=== PATIENT | female | born 1960 | race Caucasian/White ===

== ENCOUNTER → 2017-01-29 08:33 | Outpatient (CLI) | payer MEDICARE, BC ==
[2014-12-24 17:55] VITALS: BMI 33.9
[~2017-01-29 08:33] MED LIST: BAYER CHEWABLE81 MG PO; CALCIUM 250+D T1 TAB PO; GLUCOPHAGE500 MG PO; LISINOPRIL10 MG PO; NOVOLIN 70/30 110 ML SC; PROBIOTIC1 EAC1 PO; TOPROL XL50 MG PO
== END | disposition home or self-care (01) ==
LOC: D.MAMMO 08:33
DX: Z12.31 Encounter for screening mammogram for malignant neoplasm of breast (principal)

== ENCOUNTER 2017-06-12 23:02 | Emergency (ER) | payer MEDICARE, BC ==
[2014-12-24 17:55] VITALS: BMI 33.9
== END 2017-06-13 01:10 | disposition home or self-care (01) ==
LOC: D.ER 23:02
DX: G89.18 Other acute postprocedural pain (principal); I80.03 Phlebitis and thrombophlebitis of superficial vessels of lower extremities, bilateral; E11.9 Type 2 diabetes mellitus without complications; Z79.4 Long term (current) use of insulin

== ENCOUNTER → 2017-08-19 15:01 | Outpatient (CLI) | payer MEDICARE, BC ==
[2014-12-24 17:55] VITALS: BMI 33.9
[~2017-08-19 15:01] MED LIST changes: +ASPIRIN EC81 M1 PO; +OMEPRAZOLE20 M1 PO; +SUPER B COMPLE150 MG PO; +TOPROL XL25 MG PO; -TOPROL XL50 MG PO
== END | disposition home or self-care (01) ==
LOC: D.LABREF 15:01
DX: N89.8 Other specified noninflammatory disorders of vagina (principal)

== ENCOUNTER 2017-09-25 06:46 | Day surgery (SDC) | payer MEDICARE, BC ==
[2017-09-24 12:10] LABS: BASOPHILS 0.5 % (0-2); EOSINOPHILS 2.4 % (0-7); HEMATOCRIT 37.5 % (36.0-48.0); HEMOGLOBIN 12.7 g/dL (12-16); LYMPHOCYTES 35.6 % (15-50); MCH 28.2 pg (26.0-34.0); MCHC 33.9 g/dL (31.0-37.0); MCV 83.3 fL (80.0-100.0); MEAN PLATELET VOLUME 9.7 fL (7.4-10.4); MONOCYTES 7.4 % (2-11); NEUTROPHILS 54.1 % (40-80); PLATELET COUNT 212 10x3/uL (130-400); RDW 12.7 % (11.5-14.5); WBC 6.4 10x3/uL (4.8-10.8)
[2017-09-24 12:35] LABS: ANION GAP 14.2 mmol/L (8-16); CALCIUM 9.4 mg/dL (8.5-10.1); CARBON DIOXIDE 23.2 mmol/L (21.0-32.0); CREATININE - SERUM 0.9 mg/dL (0.6-1.3); POTASSIUM - SERUM 4.4 mmol/L (3.5-5.1)
[~2017-09-25] VITALS: Ht 167.6 cm; Wt 76.2 kg
--- NOTE | ~2017-09-25 | OP ---
PATIENT NAME: ALEXYS KIRBY MEDICAL RECORD: [id number] :56 LOCATION:D.OPS ADMISSION DATE: SURGEON: SONIA ALEJANDRO MD DATE OF OPERATION: 09/25/2017 PREOPERATIVE DIAGNOSIS: Left vaginal wall cyst. POSTOPERATIVE DIAGNOSIS: Left vaginal wall cyst. PROCEDURE: Excision of vaginal wall cyst. SURGEON: Sonia Alejandro MD ESTIMATED BLOOD LOSS: Minimal. ANESTHESIA: General. INTRAVENOUS FLUIDS: Per anesthesia record. SPECIMENS: Left vaginal wall cyst. PROCEDURE IN DETAIL: The patient was taken to the operating room where general anesthesia was achieved without difficulty. The patient was then prepped and draped in normal sterile fashion in dorsal lithotomy position in the [facility]. The bladder was drained of approximately 30 cc of clear yellow urine and a speculum was placed into the vagina. The left vaginal wall cyst was identified and grasped with an insulated forceps and then excised at its base using the Bovie cautery. Good hemostasis was noted from the surgical site and the cyst was sent to pathology. The speculum was then removed. The patient tolerated the procedure well, was transferred to postanesthesia recovery stable without incident. TRANSINT:[id number] Voice Confirmation ID: [id number] DOCUMENT ID: [id number] SONIA LAEJANDRO MD at 1007 CC: [id number] DICTATION DATE: 10/12/17 0801 ATTRACTIONS ASSOCIATE: 10/12/17 1345 [facility] 09/25/17 [place] [id number]
[2017-09-25 07:05] VITALS: BP 99/57; BMI 27.1
[2017-09-25 07:15] VITALS: Ht 167.6 cm; Wt 76.2 kg
== END 2017-09-25 11:20 | disposition home or self-care (01) ==
LOC: D.OPS 06:46 → D.PAN 08:30 → D.OPS 09:00 → D.PAN 09:30 → D.OPS 11:20
PROVIDERS: Obstetrics & Gynecology
DX: N89.8 Other specified noninflammatory disorders of vagina (principal); E11.9 Type 2 diabetes mellitus without complications; K21.9 Gastro-esophageal reflux disease without esophagitis; Z01.812 Encounter for preprocedural laboratory examination

== ENCOUNTER 2017-11-02 21:16 | Emergency (ER) | payer MEDICARE, BC ==
[~2017-11-02] VITALS: Ht 167.6 cm; Wt 75.9 kg
[2017-11-02 21:20] VITALS: Ht 167.6 cm; Wt 75.9 kg
[2017-11-02 21:42] LABS: BASOPHILS 0.6 % (0-2); EOSINOPHILS 2.5 % (0-7); HEMATOCRIT 37.8 % (36.0-48.0); HEMOGLOBIN 13.2 g/dL (12-16); IMMATURE GRANULOCYTES 0.2 % (0-5); LYMPHOCYTES 37.8 % (15-50); MCH 28.4 pg (26.0-34.0); MCHC 34.9 g/dL (31.0-37.0); MCV 81.5 fL (80.0-100.0); MEAN PLATELET VOLUME 9.6 fL (7.4-10.4); MONOCYTES 9.9 % (2-11); PLATELET COUNT 194 10x3/uL (130-400); RBC 4.64 10x6/uL (4.00-5.40); RDW 12.4 % (11.5-14.5); WBC 8.8 10x3/uL (4.8-10.8)
[2017-11-02 21:47] LABS: APPEARANCE CLEAR (CLEAR); BILIRUBIN NEGATIVE (NEGATIVE); COLOR YELLOW (YELLOW); GLUCOSE NEGATIVE (NEGATIVE); KETONE NEGATIVE (NEGATIVE); NITRITE NEGATIVE (NEGATIVE); PROTEIN NEGATIVE (NEGATIVE); SPECIFIC GRAVITY 1.015 (1.005-1.020); UROBILINOGEN NORMAL (NORMAL)
[2017-11-02 21:58] LABS: ALBUMIN 3.9 g/dL (3.4-5.0); ALKALINE PHOSPHATASE 91 U/L (46-116); ALT (SGPT) 25 U/L (10-68); BILIRUBIN - TOTAL 0.77 mg/dL (0.2-1.3); CALC OSMOLALITY 275 mosm/kg (275-300); CALCIUM 9.4 mg/dL (8.5-10.1); CARBON DIOXIDE 24.7 mmol/L (21.0-32.0); CHLORIDE - SERUM 97 mmol/L (98-107); GLUCOSE 179 mg/dL (74-106); POTASSIUM - SERUM 3.9 mmol/L (3.5-5.1); PROTEIN - SERUM 8.1 g/dL (6.4-8.2); SODIUM 135 mmol/L (136-145); UREA NITROGEN 19 mg/dL (7-18); eGFR NON AFRICAN AMERICAN 60 mL/min (90-120)
[2017-11-02 21:58] LABS: UDS - AMPHET NEGATIVE QUAL (NEGATIVE); UDS - BARB NEGATIVE QUAL (NEGATIVE); UDS - BENZO NEGATIVE QUAL (NEGATIVE); UDS - COCAINE NEGATIVE QUAL (NEGATIVE); UDS - OPIATE NEGATIVE QUAL (NEGATIVE); UDS - PCP NEGATIVE QUAL (NEGATIVE); UDS - THC NEGATIVE QUAL (NEGATIVE)
[2017-11-02 22:05] LABS: LIPASE 309 U/L (73-393); PRO BNP 43 pg/mL (0-125)
[2017-11-02 22:06] LABS: TROPONIN-I < 0.017 ng/mL (0.000-0.060)
[2017-11-03] MEDS ORDERED: ZOFRAN ODT4 MG/UDTAB PO (01:28)
[2017-11-03] MEDS ORDERED: CIPRO500 MG PO (01:28)
[2017-11-03] MEDS ORDERED: HYDROCODON-ACE1 EAC7 PO (01:28)
[2017-11-03] MEDS ORDERED: FLAGYL500 MG PO (01:28)
[2017-11-03 01:32] VITALS: BP 106/65
== END 2017-11-03 01:39 | disposition home or self-care (01) ==
LOC: D.ER 21:16
PROVIDERS: Family Medicine
DX: R07.9 Chest pain, unspecified (principal); R09.89 Other specified symptoms and signs involving the circulatory and respiratory systems; E11.9 Type 2 diabetes mellitus without complications

== ENCOUNTER → 2017-11-12 12:36 | Outpatient (CLI) | payer MEDICARE, BC ==
[2017-11-02 21:20] VITALS: BMI 27.0
[~2017-11-12 12:36] MED LIST changes: +CIPRO500 MG PO; +FLAGYL500 MG PO; +HYDROCODON-ACE1 EAC7 PO; +ZOFRAN ODT4 MG/UDTAB PO
== END | disposition home or self-care (01) ==
LOC: D.CT 12:36
DX: J32.9 Chronic sinusitis, unspecified (principal)

== ENCOUNTER 2018-02-20 18:30 | Emergency (ER) | payer MEDICARE, BC ==
[~2018-02-20] VITALS: Ht 167.6 cm; Wt 77.3 kg
[2018-02-20 18:42] VITALS: Ht 167.6 cm; Wt 77.3 kg
[2018-02-20 19:10] LABS: APPEARANCE CLEAR (CLEAR); BILIRUBIN 2+ (NEGATIVE); COLOR DK YELLOW (YELLOW); GLUCOSE NEGATIVE (NEGATIVE); KETONE NEGATIVE (NEGATIVE); NITRITE NEGATIVE (NEGATIVE); PROTEIN NEGATIVE (NEGATIVE); UROBILINOGEN NORMAL (NORMAL)
[2018-02-20 19:11] LABS: BACTERIA MODERATE /hpf (NONE SEEN); EPITHELIAL CELLS 0-5 /hpf (0-5); RED CELLS - URINE 0-5 /hpf (0-5)
[2018-02-20 19:12] LABS: HYALINE CAST 0-5 /lpf (NONE SEEN)
[2018-02-20 19:27] LABS: BASOPHILS 0.1 % (0-2); EOSINOPHILS 1.4 % (0-7); HEMATOCRIT 40.2 % (36.0-48.0); HEMOGLOBIN 13.6 g/dL (12-16); IMMATURE GRANULOCYTES 0.2 % (0-5); LYMPHOCYTES 11.7 % (15-50); MCH 28.4 pg (26.0-34.0); MCHC 33.8 g/dL (31.0-37.0); MCV 83.9 fL (80.0-100.0); MONOCYTES 5.5 % (2-11); NEUTROPHILS 81.1 % (40-80); PLATELET COUNT 208 10x3/uL (130-400); RBC 4.79 10x6/uL (4.00-5.40); RDW 12.9 % (11.5-14.5); WBC 8.7 10x3/uL (4.8-10.8)
[2018-02-20 19:47] LABS: ALBUMIN 3.6 g/dL (3.4-5.0); ANION GAP 17.2 mmol/L (8-16); BILIRUBIN - TOTAL 0.87 mg/dL (0.2-1.3); CALCIUM 8.9 mg/dL (8.5-10.1); CARBON DIOXIDE 24.7 mmol/L (21.0-32.0); CREATININE - SERUM 1.2 mg/dL (0.6-1.3); POTASSIUM - SERUM 3.9 mmol/L (3.5-5.1); PROTEIN - SERUM 7.5 g/dL (6.4-8.2)
[2018-02-20 20:38] VITALS: BP 114/64
[2018-02-20] MEDS ORDERED: ZOFRAN ODT4 MG/UDTAB PO (22:26)
[2018-02-20] MEDS ORDERED: KEFLEX500 MG PO (22:26)
[2018-02-20] MEDS ORDERED: MACROBID100 MG PO (22:26)
== END 2018-02-20 20:41 | disposition other institution (70) ==
LOC: D.ER 18:30
PROVIDERS: Family Medicine
DX: N39.0 Urinary tract infection, site not specified (principal); R10.9 Unspecified abdominal pain; R19.7 Diarrhea, unspecified; R11.2 Nausea with vomiting, unspecified; R50.9 Fever, unspecified; E11.9 Type 2 diabetes mellitus without complications

== ENCOUNTER → 2018-04-24 14:16 | Outpatient (CLI) | payer MEDICARE, BC ==
[2018-02-20 18:42] VITALS: BMI 27.5
[~2018-04-24 14:16] MED LIST changes: +KEFLEX500 MG PO; +MACROBID100 MG PO
== END | disposition home or self-care (01) ==
LOC: D.MRI 14:16
DX: M54.5 Low back pain (principal)

== ENCOUNTER 2018-06-18 08:00 | Outpatient (CLI) | payer MEDICARE, BC ==
[2018-02-20 18:42] VITALS: BMI 27.5
== END 2018-06-18 09:00 | disposition home or self-care (01) ==
LOC: D.MAMMO 08:00
DX: Z12.31 Encounter for screening mammogram for malignant neoplasm of breast (principal)

== ENCOUNTER 2019-08-23 08:14 | Day surgery (SDC) | payer MEDICARE, BC ==
[~2019-08-23] VITALS: Ht 167.6 cm; Wt 81.8 kg
[2019-08-23 08:49] LABS: ANION GAP 10.4 mmol/L (8-16); CALCIUM 9.1 mg/dL (8.5-10.1); CARBON DIOXIDE 28.1 mmol/L (21.0-32.0); CREATININE - SERUM 1.2 mg/dL (0.6-1.3); POTASSIUM - SERUM 4.5 mmol/L (3.5-5.1)
[2019-08-23 08:57] LABS: BASOPHILS 0.4 % (0-2); EOSINOPHILS 2.4 % (0-7); HEMATOCRIT 32.7 % (36.0-48.0); HEMOGLOBIN 10.3 g/dL (12-16); LYMPHOCYTES 44.2 % (15-50); MCH 27.8 pg (26.0-34.0); MCHC 31.5 g/dL (31.0-37.0); MCV 88.1 fL (80.0-100.0); MEAN PLATELET VOLUME 9.2 fL (7.4-10.4); MONOCYTES 8.6 % (2-11); NEUTROPHILS 44.4 % (40-80); PLATELET COUNT 240 10x3/uL (130-400); RBC 3.71 10x6/uL (4.00-5.40); RDW 15.3 % (11.5-14.5); WBC 5.1 10x3/uL (4.8-10.8)
[2019-08-23] MEDS ORDERED: PROTONIX40 MG PO (09:16)
[2019-08-23] MEDS ORDERED: DICLOFENAC SODI50 MG PO (09:17)
[2019-08-23] MEDS ORDERED: GLIMEPIRIDE2 MG PO (09:17)
[2019-08-23] MEDS ORDERED: ZYLOPRIM100 MG PO (09:17)
[2019-08-23 09:19] VITALS: BP 123/66; Ht 167.6 cm; Wt 81.8 kg
--- NOTE | 2019-08-23 11:10 | NUR ---
1100 IV REMOVED AND INSTRUCTIONS GIVEN TO PT
--- NOTE | 2019-08-24 11:39 | OP ---
PATIENT NAME: ALEXYS KIRBY MEDICAL RECORD: [id number] :58 [facility] DATE: SURGEON: STEPHANIE VANN DO DATE OF OPERATION: 08/23/2019 PROCEDURE: EGD with biopsies. INDICATIONS FOR PROCEDURE: Dysphagia, epigastric abdominal tenderness, GERD, vomiting. SCOPE: Olympus video gastroscope. MEDICATIONS: Propofol 120 mg IV per anesthesia. ESTIMATED BLOOD LOSS: Minimal. COMPLICATIONS: None. FINDINGS: Informed consent was given. The patient was made comfortable with the above medication. After reaching an adequate level of sedation by slow IV push, the patient was placed on her left side. The endoscope was advanced under direct visualization through the mouth to the second portion of the duodenum with ease. The entire esophagus appeared normal. There were no strictures, rings, or other abnormalities. Cold forceps biopsies were taken from the mid esophagus to rule out the presence of eosinophils. At the GE junction, there were minor changes consistent with LA class A reflux-induced esophagitis. The endoscope was advanced beyond the GE junction into the stomach. There was an obvious prior intervention in the form of a gastric sleeve present. The endoscope was able to retroflex to view the cardia and GE junction from below. There were some surgical material present from the prior intervention, which was visualized and did not appear abnormal. The mucosa throughout the entire stomach appeared normal. Cold forceps biopsies were taken to submit for histopathology and to rule out the presence of H. pylori. The endoscope was advanced into the duodenum, which appeared normal to the second portion. The endoscope was withdrawn from the patient. The patient tolerated the procedure well and there were no complications. IMPRESSION: 1. LA class A reflux-induced esophagitis. 2. Prior surgery in the form of a gastric sleeve. PLAN AND RECOMMENDATIONS: 1. Discharge home when recovery parameters are met. 2. Follow up biopsy specimen results. 3. GERD diet and reflux precautions. 4. Continue current medications including pantoprazole 40 mg daily. 5. Barium esophagram and esophageal manometry regarding the patient's ongoing esophageal dysphagia. I favor a physiologic process as there are no anatomical abnormalities or mucosal abnormalities to explain the patient's dysphagia and syncopal type episodes intermittently occurring while eating. 6. Follow up in GI clinic in 1 month. TRANSINT:[id number] Voice Confirmation ID: [id number] DOCUMENT ID: [id number] OPERATIVE REPORT [id number] ALEXYS KIRBY,STEPHANIE Lu DO at 1139 CC: [id number] DICTATION DATE: 08/23/19 1044 [facility] PILOT: 08/23/19 1238 [facility] 08/23/19 [place] [id number] [place] [id number]
== END 2019-08-23 11:25 | disposition home or self-care (01) ==
LOC: D.OPS 08:14
PROVIDERS: ATTEND Internal Medicine Gastroenterology
DX: R13.10 Dysphagia, unspecified (principal); R10.816 Epigastric abdominal tenderness; K21.9 Gastro-esophageal reflux disease without esophagitis; R11.10 Vomiting, unspecified; K20.9 Esophagitis, unspecified

== ENCOUNTER → 2019-09-30 09:29 | Outpatient (CLI) | payer MEDICARE, BC ==
[2019-08-23 09:19] VITALS: BMI 29.1
[~2019-09-30 09:29] MED LIST changes: +DICLOFENAC SODI50 MG PO; +GLIMEPIRIDE2 MG PO; +PROTONIX40 MG PO; +ZYLOPRIM100 MG PO
== END | disposition home or self-care (01) ==
LOC: D.RAD 09-28 10:30 → D.OPS 09:29 → D.RAD 10:30
PROVIDERS: ATTEND Internal Medicine Gastroenterology
DX: R13.10 Dysphagia, unspecified (principal)

== ENCOUNTER 2019-10-26 12:54 | Inpatient (IN) | payer MEDICARE, BC ==
[~2019-10-26] VITALS: Ht 167.6 cm; Wt 80.5 kg
[2019-10-27 07:01] LABS: BASOPHILS 0.5 % (0-2); EOSINOPHILS 2.6 % (0-7); HEMATOCRIT 34.1 % (36.0-48.0); HEMOGLOBIN 10.7 g/dL (12-16); LYMPHOCYTES 49.3 % (15-50); MCH 26.8 pg (26.0-34.0); MCHC 31.4 g/dL (31.0-37.0); MCV 85.5 fL (80.0-100.0); MEAN PLATELET VOLUME 9.3 fL (7.4-10.4); MONOCYTES 7.3 % (2-11); NEUTROPHILS 40.3 % (40-80); PLATELET COUNT 221 10x3/uL (130-400); RBC 3.99 10x6/uL (4.00-5.40); RDW 12.7 % (11.5-14.5); WBC 6.2 10x3/uL (4.8-10.8)
[2019-10-27 07:18] LABS: CALCIUM 9.4 mg/dL (8.5-10.1); CARBON DIOXIDE 26.4 mmol/L (21.0-32.0); CREATININE - SERUM 1.2 mg/dL (0.6-1.3); POTASSIUM - SERUM 4.4 mmol/L (3.5-5.1)
[2019-10-27 08:23] VITALS: BP 113/55; BMI 28.8
--- NOTE | 2019-10-27 13:01 | NUR ---
SHE IS SLEEPY, SILETZ TRIBE HAS TO READ LIPS. HER IS AT THE BEDSIDE. THE CALL LIGHT IS WITHIN REACH. SHE HAS 5 LAP SITES.
[2019-10-27 13:06] VITALS: Ht 167.6 cm; Wt 80.5 kg
[2019-10-27 20:00] VITALS: BP 122/60
--- NOTE | 2019-10-27 22:20 | NUR ---
A&O X 4. NOATAK. DENIES PAIN WHEN STILL. AMBULATED INDEPENDENTLY TO RESTRROM, REPORTS VOID. NO FURTHER NEEDS VOICED AT THIS TINME, CTM
[2019-10-28] VITALS: BP 109/54
[2019-10-28 04:00] VITALS: BP 113/48
--- NOTE | 2019-10-28 04:17 | NUR ---
I have reviewed this patient and I concur with the Shift Assessment completed by the Licensed Practical Nurse today this shift.
[2019-10-28 06:43] LABS: BASOPHILS 0.1 % (0-2); EOSINOPHILS 0 % (0-7); HEMATOCRIT 30.2 % (36.0-48.0); HEMOGLOBIN 9.5 g/dL (12-16); IMMATURE GRANULOCYTES 0.2 % (0-5); LYMPHOCYTES 19.6 % (15-50); MCH 26.8 pg (26.0-34.0); MCHC 31.5 g/dL (31.0-37.0); MCV 85.3 fL (80.0-100.0); MEAN PLATELET VOLUME 9.5 fL (7.4-10.4); MONOCYTES 6.5 % (2-11); NEUTROPHILS 73.6 % (40-80); PLATELET COUNT 203 10x3/uL (130-400); RBC 3.54 10x6/uL (4.00-5.40); RDW 12.6 % (11.5-14.5)
[2019-10-28 06:48] LABS: WBC 10.2 10x3/uL (4.8-10.8)
[2019-10-28 06:55] LABS: ALBUMIN 3.2 g/dL (3.4-5.0); BILIRUBIN - TOTAL 0.52 mg/dL (0.2-1.3); CALCIUM 8.4 mg/dL (8.5-10.1); CARBON DIOXIDE 23.6 mmol/L (21.0-32.0); POTASSIUM - SERUM 4.6 mmol/L (3.5-5.1); PROTEIN - SERUM 6.4 g/dL (6.4-8.2)
[2019-10-28 07:00] LABS: CREATININE - SERUM 1.7 mg/dL (0.6-1.3)
[2019-10-28 09:28] VITALS: BP 116/51
[2019-10-28] MEDS ORDERED: HYDROCODON-ACE1 EAC7 PO (09:33)
--- NOTE | 2019-10-28 10:29 | NUR ---
PATIENT READY FOR DISCHARGE. QUESTIONED WHETHER OR NOT THE NS BOLUS WAS REQUIRED. I TOLD HER SHE COULD REFUSE IT AND CONTINUE WITH DISCHARGE WHEN HER DAUGHTER GOT HERE. CL IN REACH. WCTM
--- NOTE | 2019-10-28 10:50 | NUR ---
PATIENT QUESTIONING WHAT HER O2 LEVEL WAS BECAUSE HER DAUGHTER WAS WORRIED ABOUT IT. STATES SHE CAN'T REALLY BREATHE THROUGH HER NOSE OR VERY WELL SINCE SHE HAD A NOSE SURGERY. CL IN REACH. O2 LEVEL WAS 94%. WCTM
--- NOTE | 2019-10-28 11:03 | NUR ---
PATIENT RECIEVED HALF THE NORMAL SALINE BOLUS. DISCHARGE INSTRUCTIONS GIVEN. VERBALIZED UNDERSTANDING. DAUGHTER WAITING AT THE [place]. LALO MILIAN ESCORTED OUT AND HELPED WITH HER BAGS. IV THERAPY DC'ED FROM RIGHT HAND TIP INTACT.
[2019-10-29] MEDS ORDERED: MULTI-DAY VITAM1 TAB PO (16:42)
== END 2019-10-28 11:06 | disposition home or self-care (01) | DRG 328 ==
LOC: D.SDCHOLD 10-27 06:36 → D.MS 10-27 06:36 → D.SDCHOLD 10-27 09:00 → D.MS 10-27 11:59
PROVIDERS: Anesthesiology; Surgery; ADMIT Surgery; ATTEND Surgery
PROC: 0BQT4ZZ Repair Diaphragm, Percutaneous Endoscopic Approach (ICD-10-PCS; principal; 2019-10-27 09:00)
PROC: 0DV44CZ Restriction of Esophagogastric Junction with Extraluminal Device, Percutaneous Endoscopic Approach (ICD-10-PCS; 2019-10-27 09:00)
DX: K44.9 Diaphragmatic hernia without obstruction or gangrene (principal); K21.0 Gastro-esophageal reflux disease with esophagitis; Z98.84 Bariatric surgery status

== ENCOUNTER 2019-10-29 08:12 | Inpatient (IN) | payer MEDICARE, BC ==
[~2019-10-29] VITALS: Ht 167.6 cm; Wt 81.8 kg
[2019-10-29] MEDS ORDERED: MULTI-DAY VITAM1 TAB PO (16:42)
[2019-10-30 10:37] VITALS: Ht 167.6 cm; Wt 81.8 kg
[2019-10-31] MEDS ORDERED: IPRAT-ALBUT 0.5-3 ML INH (09:21)
[2019-10-31 11:32] VITALS: BP 118/61
[2019-10-31] MEDS ORDERED: ALBUTEROL SULF8.5 GM INH (12:23)
== END 2019-10-31 13:48 | disposition home or self-care (01) | DRG 200 ==
LOC: D.ER 08:12 → D.MS 12:43 → OBSVTIME 13:33 → D.MS 10-30 19:03
PROVIDERS: ADMIT Surgery; ATTEND Surgery
DX: J95.811 Postprocedural pneumothorax (principal); J98.11 Atelectasis; K21.9 Gastro-esophageal reflux disease without esophagitis; Y83.9 Surgical procedure, unspecified as the cause of abnormal reaction of the patient, or of later complication, without mention of misadventure at the time of the procedure

== ENCOUNTER → 2019-12-30 13:48 | Outpatient (CLI) | payer MEDICARE, BC ==
[2019-10-30 10:37] VITALS: BMI 29.1
[~2019-12-30 13:48] MED LIST changes: +ALBUTEROL SULF8.5 GM INH; +IPRAT-ALBUT 0.5-3 ML INH; +MULTI-DAY VITAM1 TAB PO
== END | disposition home or self-care (01) ==
LOC: D.CT 12-20 15:30
PROVIDERS: ATTEND Internal Medicine Pulmonary Disease
DX: J93.9 Pneumothorax, unspecified (principal); R07.9 Chest pain, unspecified

== ENCOUNTER 2020-01-19 11:20 | Emergency (ER) | payer MEDICARE, BC ==
[~2020-01-19] VITALS: Ht 167.6 cm; Wt 80.0 kg
[2020-01-19 11:30] VITALS: Ht 167.6 cm; Wt 80.0 kg
[2020-01-19 11:55] LABS: BILIRUBIN NEGATIVE (NEGATIVE); KETONE NEGATIVE (NEGATIVE); NITRITE NEGATIVE (NEGATIVE); UROBILINOGEN NORMAL (NORMAL)
[2020-01-19 11:56] LABS: BASOPHILS 0.4 % (0-2); EOSINOPHILS 2.1 % (0-7); HEMATOCRIT 35.4 % (36.0-48.0); HEMOGLOBIN 11.5 g/dL (12-16); IMMATURE GRANULOCYTES 0.1 % (0-5); LYMPHOCYTES 35.3 % (15-50); MCH 26.7 pg (26.0-34.0); MCHC 32.5 g/dL (31.0-37.0); MCV 82.1 fL (80.0-100.0); MEAN PLATELET VOLUME 9.1 fL (7.4-10.4); MONOCYTES 6.4 % (2-11); NEUTROPHILS 55.7 % (40-80); PLATELET COUNT 252 10x3/uL (130-400); RBC 4.31 10x6/uL (4.00-5.40); RDW 14.4 % (11.5-14.5)
[2020-01-19 12:09] LABS: CALC OSMOLALITY 282 mosm/kg (275-300); CARBON DIOXIDE 24.9 mmol/L (21.0-32.0); CHLORIDE - SERUM 100 mmol/L (98-107); CREATININE - SERUM 1.2 mg/dL (0.6-1.3); POTASSIUM - SERUM 4.2 mmol/L (3.5-5.1); SODIUM 135 mmol/L (136-145); UREA NITROGEN 30 mg/dL (7-18); eGFR NON AFRICAN AMERICAN 48 mL/min (90-120)
[2020-01-19 12:11] LABS: GLUCOSE 230 mg/dL (74-106)
[2020-01-19 12:19] LABS: ALBUMIN 4.2 g/dL (3.4-5.0); ALKALINE PHOSPHATASE 109 U/L (30-120); ALT (SGPT) 27 U/L (10-68); AMYLASE - SERUM 96 U/L (25-115); BILIRUBIN - TOTAL 0.81 mg/dL (0.2-1.3); LIPASE 295 U/L (73-393); PROTEIN - SERUM 7.6 g/dL (6.4-8.2); TROPONIN-I < 0.017 ng/mL (0.000-0.060)
[2020-01-19] MEDS ORDERED: ULTRAM50 MG PO (17:14)
[2020-01-19 17:36] VITALS: BP 118/57
== END 2020-01-19 17:40 | disposition home or self-care (01) ==
LOC: D.ER 11:20
DX: E11.65 Type 2 diabetes mellitus with hyperglycemia (principal); M54.16 Radiculopathy, lumbar region; R79.89 Other specified abnormal findings of blood chemistry; Z79.84 Long term (current) use of oral hypoglycemic drugs; R10.9 Unspecified abdominal pain

== ENCOUNTER 2020-08-22 11:45 | Outpatient (CLI) | payer MEDICARE, BC ==
[~2020-08-22 11:45] MED LIST changes: +ULTRAM50 MG PO
[2020-08-22 13:37] VITALS: BMI 29.1
== END 2020-08-22 12:15 | disposition home or self-care (01) ==
LOC: D.MAMMO 11:45
PROVIDERS: ATTEND Nurse Practitioner
DX: Z12.31 Encounter for screening mammogram for malignant neoplasm of breast (principal)

== ENCOUNTER 2020-08-22 13:28 | Emergency (ER) | payer MEDICARE, BC ==
[~2020-08-22] VITALS: Ht 167.6 cm; Wt 81.8 kg
[2020-08-22 13:37] VITALS: Ht 167.6 cm; Wt 81.8 kg
[2020-08-22 15:03] LABS: BASOPHILS 0.3 % (0-2); EOSINOPHILS 1.7 % (0-7); HEMATOCRIT 36.8 % (36.0-48.0); IMMATURE GRANULOCYTES 0.1 % (0-5); LYMPHOCYTE ABS# 3.32 10x3/uL (1.18-3.74); LYMPHOCYTES 46.4 % (15-50); MCH 27.3 pg (26.0-34.0); MCHC 32.6 g/dL (31.0-37.0); MCV 83.6 fL (80.0-100.0); MEAN PLATELET VOLUME 9.1 fL (7.4-10.4); MONOCYTES 5.6 % (2-11); NEUTROPHIL ABS# 3.29 10x3/uL (1.56-6.13); NEUTROPHILS 45.9 % (40-80); PLATELET COUNT 230 10x3/uL (130-400); RDW 12.9 % (11.5-14.5); WBC 7.2 10x3/uL (4.8-10.8)
[2020-08-22 15:09] LABS: BILIRUBIN NEGATIVE (NEGATIVE); KETONE NEGATIVE (NEGATIVE); NITRITE NEGATIVE (NEGATIVE); UROBILINOGEN NORMAL mg/dL (< 2)
[2020-08-22 15:17] LABS: CALC OSMOLALITY 281 mosm/kg (275-300); CALCIUM 9.4 mg/dL (8.5-10.1); CARBON DIOXIDE 28.1 mmol/L (21.0-32.0); CHLORIDE - SERUM 103 mmol/L (98-107); CREATININE - SERUM 1.1 mg/dL (0.6-1.3); POTASSIUM - SERUM 4.2 mmol/L (3.5-5.1); SODIUM 139 mmol/L (136-145); UREA NITROGEN 21 mg/dL (7-18); eGFR NON AFRICAN AMERICAN 53 mL/min (90-120)
[2020-08-22 15:21] LABS: GLUCOSE 114 mg/dL (74-106)
[2020-08-22 15:25] LABS: ALKALINE PHOSPHATASE 85 U/L (30-120); ALT (SGPT) 21 U/L (10-68); AMYLASE - SERUM 153 U/L (25-115); LIPASE 493 U/L (73-393); PROTEIN - SERUM 7.8 g/dL (6.4-8.2); TROPONIN-I < 0.017 ng/mL (0.000-0.060)
[2020-08-22 17:11] VITALS: BP 130/66
== END 2020-08-22 17:11 | disposition home or self-care (01) ==
LOC: D.ER 13:28
PROVIDERS: Emergency Medicine
DX: R10.13 Epigastric pain (principal); E11.22 Type 2 diabetes mellitus with diabetic chronic kidney disease; N18.9 Chronic kidney disease, unspecified; Z79.84 Long term (current) use of oral hypoglycemic drugs; R74.8 Abnormal levels of other serum enzymes; E11.65 Type 2 diabetes mellitus with hyperglycemia

== ENCOUNTER → 2020-11-13 09:22 | Outpatient (CLI) | payer MEDICARE, BC | END | disposition home or self-care (01) | LOC: D.US 09:22 | PROVIDERS: ATTEND Internal Medicine Gastroenterology | DX: R13.12 Dysphagia, oropharyngeal phase (principal); R11.10 Vomiting, unspecified ==

== ENCOUNTER → 2020-11-16 11:55 | Outpatient (CLI) | payer MEDICARE, BC | END | disposition home or self-care (01) | LOC: D.RAD 11:55 | PROVIDERS: ATTEND Internal Medicine Gastroenterology | DX: R13.12 Dysphagia, oropharyngeal phase (principal); R11.10 Vomiting, unspecified; R10.10 Upper abdominal pain, unspecified ==